=== PATIENT | male | born 1985 | race Hispanic/Latino ===

== ENCOUNTER 2024-07-13 07:20 | Emergency (ER) | payer OTHER ==
[~2024-07-13] VITALS: Ht 172.7 cm; Wt 104.2 kg
[2024-07-13] MEDS ORDERED: SFHIBU200 PO (07:29)
[2024-07-13] MEDS: ACETAMINOPHEN 500 MG TAB PO ONE (08:52)
[2024-07-13] MEDS: KETOROLAC 30 MG/ML 1ML VIAL IV ONE (08:52)
[2024-07-13] MEDS: METHOCARBAMOL 1,000 MG/10 ML VIAL IV ONE (08:58)
[2024-07-13] MEDS ORDERED: diazePAM 5MG TABLET PO ONE (09:50)
[2024-07-13] MEDS: LIDOCAINE 5% (LIDODERM) PATCH TD ONE (09:53)
[2024-07-13] MEDS ORDERED: METH-1164 PO (10:09)
[2024-07-13] MEDS ORDERED: LIDO1ADH93 TOP (10:09)
[2024-07-13 10:33] VITALS: BP 133/99; TEMP 97; O2SAT 100
== END 2024-07-13 10:35 | disposition home or self-care (01) ==
LOC: M ED 07:20
DX: M54.31 Sciatica, right side (principal); F10.10 Alcohol abuse, uncomplicated; Z79.1 Long term (current) use of non-steroidal anti-inflammatories (NSAID); Z79.899 Other long term (current) drug therapy
CPT/HCPCS: 99284; J1100; J1885; J2800